=== PATIENT | male | born 1985 | race Caucasian/White ===

== ENCOUNTER → 2018-04-28 | Outpatient (CLI) | payer BC ==
[~2018-04-28] MED LIST: MULT1CAP27 PO
--- NOTE | 2018-04-28 18:28 | Diagnostic Imaging Report ---
INDICATION: Pain. FINDINGS: The bowel gas pattern is nonspecific. There are no abnormal abdominal calcifications. The osseous structures are unremarkable. IMPRESSION: 1. Nonspecific bowel gas pattern. 2. No definitive evidence of nephrolithiasis. Dictated by: Dictated on workstation # [id number]
== END ==
LOC: RAD 13:02
PROVIDERS: ATTEND Urology
DX: R10.9 Unspecified abdominal pain (principal)
CPT/HCPCS: 74018

== ENCOUNTER 2018-04-29 05:39 | Outpatient (CLI) | payer BC ==
[~2018-04-29] VITALS: Ht 182.9 cm; Wt 99.8 kg
[2018-04-29] MEDS ORDERED: MULT1CAP27 PO (12:29)
== END 2018-04-29 12:56 ==
LOC: PREOP 05:39
PROVIDERS: ATTEND Urology
DX: Z01.818 Encounter for other preprocedural examination (principal)

== ENCOUNTER → 2018-04-30 | Outpatient (CLI) | payer BC | LOC: LAB 09:29 | PROVIDERS: ATTEND Urology | DX: N20.1 Calculus of ureter (principal) ==